=== PATIENT | male | born 1945 | race African-American/Black ===

== ENCOUNTER 2020-07-07 10:34 | Inpatient (IN) | payer OTHER ==
[~2020-07-07] VITALS: Ht 152.4 cm; Wt 148.3 kg
--- NOTE | ~2020-07-07 | HC ---
[facility] [place] [address] CONSULTATION Name: PAYTON ARAGON Room #: 170-9 ADM IN M.R.#: [id number] Admission: 07/07/20 Attend Phys: Trevor Thomas MD Discharge: Date of : 43 Report #: [id number] THIS REPORT FOR: cc: FAM - Family physician unknown FAM - Family physician unknown ~ DATE OF SERVICE: 07/07/2020 REASON FOR CONSULTATION: Possible atrial fibrillation. HISTORY OF PRESENT ILLNESS: The patient is a 75-year-old with history of HIV, prior syphilis, hypertension, hyperlipidemia, diabetes mellitus, recently discharged from [facility], apparently had GI bleeding, had upper and lower endoscopies, does not sound like a source was discovered. Eventually, he was discharged to a shelter facility, where today he started having palpitations and he was noted to be tachycardic with a heart rate in the 170s. Unfortunately, I have no EKGs to verify if there was a true arrhythmia or not. He presented here to the Emergency Room; and his EKG, which I reviewed, showed sinus rhythm with no ischemic changes and a right bundle branch block, but no atrial fibrillation and on telemetry, currently, he is in sinus rhythm as well. He denies any chest pain or chest tightness. He denies any PND or orthopnea. He denies presyncope or syncope. REVIEW OF SYSTEMS: A 12-point review of systems was performed and was negative other than what I mentioned above. PAST SURGICAL HISTORY: As above. SOCIAL HISTORY: He does not smoke. FAMILY HISTORY: Noncontributory. ALLERGIES: None. MEDICATIONS: Have been reviewed, which include acetaminophen, amitriptyline, aspirin, Lipitor, Tessalon Perles, Biktarvy for his HIV, vitamin D, colchicine, Flomax, MiraLax, insulin, hydroxyzine, Levaquin 750 mg every 3 days, losartan 100 mg a day, Toprol 50 mg a day, oxycodone, and pantoprazole. PHYSICAL EXAMINATION: VITAL SIGNS: Temperature is 36.4, his pulse was 151 on admission, is now down to 96, respiration 16, blood pressure 112/66, sats are 98%. GENERAL: He is in no acute distress. He is alert and oriented x 3. HEENT: His sclerae are anicteric. His oropharynx is clear. NECK: Supple, with no thyromegaly or carotid bruits. [facility] [address] [place] [address] CONSULTATION Name: PAYTON ARAGON Room #: 170-9 [facility] IN [facility]#: [id number] Admission: 07/07/20 Attend Phys: Trevor Thomas MD Discharge: Date of : 43 Report #: [id number] HEART: Regular rate and rhythm with no murmurs, rubs, or gallops. LUNGS: Clear to auscultation bilaterally. ABDOMEN: Soft, nontender with no hepatosplenomegaly and no abdominal rebound. His back is with no CVA tenderness. EXTREMITIES: Demonstrate 2+ pulses throughout with no clubbing, cyanosis, or edema. His cranial nerves 2-12 are intact. RADIOLOGIC DATA: His chest x-ray shows no acute process. His CT scan shows bilateral pulmonary emboli. LABORATORY DATA: His white count is 7, hemoglobin is 9.7, and his platelets are 400. His coags demonstrate a D-dimer 6.85. His chemistry shows sodium of 132, potassium 3.9, BUN 13, creatinine 1.7. His troponin is negative. His proBNP is within normal limits at 356. ASSESSMENT: 1. Possible atrial fibrillation. 2. Bilateral pulmonary emboli. PLAN: With regards to his arrhythmia, I have not seen anything definitive at this point. I would go ahead and resume his Toprol, which he was on as an outpatient at 50 mg a day. I would not recommend any antiarrhythmic drugs at this time unless we can document something definitive. With regards to his pulmonary embolus, etiology of this is unclear and we can go ahead and start IV heparin at this time. I would recommend a Pulmonary consult to further workup his pulmonary embolus and determine duration of therapy. If we run into further anemia or bleeding issues, then we may need to consider placement of an IVC filter. We will continue to follow. By: 1549 11 /nt
[~2020-07-07 10:34] MED LIST: LEVOFLOXACIN750 MG PO
[2020-07-07 10:35] VITALS: BP 107/57
[2020-07-07] MEDS ORDERED: ACETAMINOPHEN500 MG PO (10:53)
[2020-07-07] MEDS ORDERED: LIPITOR40 MG PO (10:54)
[2020-07-07] MEDS ORDERED: TESSALON PERLE100 M1 PO (10:54)
[2020-07-07] MEDS ORDERED: AMITRIPTYLINE H50 M3 PO (10:54)
[2020-07-07] MEDS ORDERED: ASA81BEC PO (10:54)
[2020-07-07] MEDS ORDERED: BIKTARVY 50-201 EACH PO (10:55)
[2020-07-07] MEDS ORDERED: VITAMIN D310 MC4 PO (10:55)
[2020-07-07] MEDS ORDERED: HUMALOG100 UNIT/1 SUBQ (10:56)
[2020-07-07] MEDS ORDERED: FLOMAX0.4 MG PO (10:56)
[2020-07-07] MEDS ORDERED: COLCHICINE0.6 M1 PO (10:56)
[2020-07-07] MEDS ORDERED: MIRALAX119 GM PO (10:56)
[2020-07-07] MEDS ORDERED: HYDROXYZINE HCL25 M2 PO (10:57)
[2020-07-07] MEDS ORDERED: ROXICODONE5 MG PO (10:58)
[2020-07-07] MEDS ORDERED: LOSARTAN POTAS100 MG PO (10:58)
[2020-07-07] MEDS ORDERED: TOPROL XL50 MG PO (10:58)
[2020-07-07] MEDS ORDERED: PROTONIX40 M2 PO (10:59)
[2020-07-07] MEDS ORDERED: SENNA PLUS TAB1 EACH PO ×2 (10:59)
[2020-07-07 11:44] LABS: ABSOLUTE NEUTROPHILS 5.2 thou/uL (1.4-8.2); BASOPHILS 0.5 % (0.0-2.0); EOSINOPHILS 2.3 % (0.0-3.0); HEMATOCRIT 29.7 % (42.0-52.0); HEMOGLOBIN 9.7 gm/dL (14.0-18.0); LYMPHOCYTES 16.4 % (24.0-44.0); MCH 28.5 pg (26.0-34.0); MCHC 32.7 g/dL (28.0-37.0); MCV 87.2 fL (80.0-100.0); MONOCYTES 10.1 % (1.0-8.0); PLATELET COUNT 400 thou/uL (150-400); POLYS 70.7 % (36.0-66.0); RDW 16.2 % (10.5-14.5); WBC 7.4 thou/uL (4.0-11.0)
[2020-07-07 11:54] LABS: ANION GAP 6 mmol/L (7-16); BUN 13 mg/dL (7-18); CALCIUM 9.6 mg/dL (8.5-10.1); CHLORIDE 99 mmol/L (98-107); CO2 27 mmol/L (21-32); CREATININE 1.7 mg/dL (0.7-1.3); GLUCOSE 176 mg/dL (74-106); POTASSIUM 3.9 mmol/L (3.5-5.1); SODIUM 132 mmol/L (136-145)
[2020-07-07 12:04] LABS: ALBUMIN 2.5 g/dL (3.4-5.0); SGOT 47 U/L (15-37); SGPT 37 U/L (16-63); TOTAL BILIRUBIN 0.4 mg/dL (0.2-1.0); TOTAL PROTEIN 7.8 g/dL (6.4-8.2); TROPONIN-I <0.06 ng/mL (<0.06)
--- NOTE | 2020-07-07 14:56 | EKG ---
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
[2020-07-07 15:10] LABS: FOLIC ACID 7.1 ng/mL (8.6-58.9)
[2020-07-07 16:42] LABS: APTT 53.5 Seconds (24.5-32.8); INR 1.1; PROTIME 11.9 Seconds (9.3-11.4)
[2020-07-07 19:35] VITALS: BP 113/49
[2020-07-07 19:45] VITALS: BP 113/49
[2020-07-07 20:15] VITALS: BP 122/55
[2020-07-08 00:45] VITALS: BP 106/62
[2020-07-08 03:32] LABS: ABSOLUTE NEUTROPHILS 4.7 thou/uL (1.4-8.2); BASOPHILS 0.9 % (0.0-2.0); EOSINOPHILS 3.1 % (0.0-3.0); HEMATOCRIT 26.1 % (42.0-52.0); HEMOGLOBIN 8.7 gm/dL (14.0-18.0); LYMPHOCYTES 22.4 % (24.0-44.0); MCH 28.9 pg (26.0-34.0); MCHC 33.2 g/dL (28.0-37.0); MCV 87.1 fL (80.0-100.0); PLATELET COUNT 349 thou/uL (150-400); POLYS 62.6 % (36.0-66.0); RDW 16.2 % (10.5-14.5); WBC 7.5 thou/uL (4.0-11.0)
[2020-07-08 03:38] LABS: CALCIUM 8.9 mg/dL (8.5-10.1); CREATININE 1.8 mg/dL (0.7-1.3); MAGNESIUM 1.6 mg/dL (1.8-2.4); POTASSIUM 3.9 mmol/L (3.5-5.1)
[2020-07-08 04:44] VITALS: BP 117/66
--- NOTE | 2020-07-08 07:17 | NUR ---
PATIENTS CARES WERE ASSUMED AT TRANSFER FROM ER. PATIENT A/O X4, DOES NOT WANT TO RETURN TO FACILITY HE CAME FROM. BROTHER TO BRING HIV MEDS TODAY. ORDERS WERE OTAIN TO CONTINUE TO GTT, AND CHECK APTT Q6 HOURS. PATIENT WAS ASSESSED AND MEDS WERE PASSED. AMADA PATELNERS REFUSED DUE TO TWO SOFT STOOLS THIS SHIFT WITHOUT THEM. ROUNDING DONE. BEDIN LOW AND LOCKED POSITION
[2020-07-08 07:50] VITALS: BP 115/75
--- NOTE | 2020-07-08 09:30 | NUR ---
PT IS AXOX4, PLEASANT. HEPARIN GTT AT 10.63ML/HR. APTT DRAWN AT 0830. APTT 76.3 PER PROTOCOL, HEPARIN GTT REDUCED 2.9ML/HR TO 7.72ML/HR.
--- NOTE | 2020-07-08 09:50 | NUR ---
75-year-old who presents to the ED on 07-07-20 from [facility] where he has recently been in skilled care following a hospitalization at [facility] for rectal bleeding. Per the patient at [facility] his EGD and colonoscopy did not reveal a source of bleeding. Patient present to [facility] for sinus tachycardia and found to be in A-fib with RVR. Patient is a patient with Dr. Meng Horton. Patient is listed as A&O x4 and lists his sister Melissa Jarrett as his next of kin at [phone]. Patient expresses not to return to [facility]. Patient has orders for both PT and OT and upon evaluation with MD evaluation will determine discharge plan of care.
[2020-07-08 12:10] VITALS: BP 107/67
--- NOTE | 2020-07-08 13:36 | NUR ---
Met with patient who admits from [facility]. Patient reports he was at [place] and had infected hardware in both knees. Patient had I/D done on knee at [place]. Patient dc to skilled rehab at [facility] 07/01/20. Patient reports he does not want to return. He reports he did not rec much therapy at facility. He does not want to return. He reports he has medicare/medicaid with [place] is $80. patient reviewed skilled list and unfamiliar with facilities. He reports referral to [facility] since across [address]. Patient reports he lives with his brother prior to [facility] [place].
--- NOTE | 2020-07-08 15:15 | 2DMMODE ---
[facility] [place] [address] 2 D/M-MODE ECHOCARDIOGRAM Name: PAYTON ARAGON Room #: 214-P ADM IN M.R.#: [id number] Admission: 07/07/20 Attend Phys: Trevor Thomas MD Discharge: Date of : 43 Report #: [id number] THIS REPORT FOR: cc: FAM - Family physician unknown FAM - Family physician unknown Daniel Kinney MD MERGED WITH [facility] ~ APPROVED REPORT Study performed: 07/08/2020 14:28:57 EXAM: Comprehensive 2D, Doppler, and color-flow Echocardiogram Patient Location: Bedside Room #: 214 Status: routine BSA: 2.45 HR: 89 bpm BP: 107/67 mmHg Rhythm: RBBB Other Information Study Quality: Adequate Technically limited study due to morbid obesity. Indications Question Afib. Hx: DM, HTN, HLP. 2D Dimensions RVDd: 33.65 mm IVSd: 10.51 (7-11mm) LVOT Diam: 21.29 (18-24mm) LVDd: 37.16 mm PWd: 9.53 (7-11mm) Ascending Ao: 37.34 (22-36mm) LVDs: 25.34 (25-40mm) Left Atrium: 30.03 (27-40mm) Aortic Root: 34.22 mm Volumes Left Atrial Volume (Systole) Single Plane 4CH: 31.87 mL Single Plane 2CH: 52.36 mL LA ESV Index: 18.00 mL/m2 Aortic Valve AoV Peak John.: 1.20 m/s [facility] [address] [place] [address] 2 D/M-MODE ECHOCARDIOGRAM Name: PAYTON ARAGON Room #: 214-P [facility] IN .R.#: [id number] Admission: 07/07/20 Attend Phys: Trevor Thomas MD Discharge: Date of : 43 Report #: [id number] AO Peak Gr.: 5.78 mmHg LVOT Max P.81 mmHg LVOT Max V: 1.21 m/s EDDA Vmax: 3.57 cm2 Mitral Valve E/A Ratio: 0.5 MV Decel. Time: 162.69 ms MV E Max John.: 0.49 m/s MV A John.: 0.94 m/s MV PHT: 47.18 ms IVRT: 103.81 ms Pulmonary Valve PV Peak John.: 0.93 m/s PV Peak Gr.: 3.48 mmHg Tricuspid Valve TR Peak John.: 1.74 m/s RAP Estimate: 5.00 mmHg TR Peak Gr.: 12.05 mmHg PA Pressure: 17.00 mmHg Left Ventricle The left ventricle is normal size. There is normal LV segmental wall motion. There is normal left ventricular wall thickness. Left ventricular systolic function is normal. LVEF is 55%. Mild diastolic dysfunction is present (impaired relaxation pattern). Right Ventricle The right ventricle is normal size. The right ventricular systolic function is normal. Atria The left atrium size is normal. The right atrium size is normal. Aortic Valve The aortic valve is normal in structure; mildly calcified. No aortic regurgitation is present. There is no aortic valvular stenosis. Mitral Valve The mitral valve is normal in structure. Trace mitral regurgitation. Tricuspid Valve The tricuspid valve is normal in structure. Trace tricuspid regurgitation. Estimated PAP is 17mmHg. [facility] [address] [place] [address] 2 D/M-MODE ECHOCARDIOGRAM Name: ESTEPHANIA ARAGONR Room #: 214-P ADM IN M.R.#: [id number] Admission: 07/07/20 Attend Phys: Trevor Thomas MD Discharge: Date of : 43 Report #: [id number] Pulmonic Valve The pulmonary valve is normal in structure. Trace pulmonic regurgitation. Great Vessels The aortic root is normal in size. The ascending aorta is normal in size. IVC is normal in size and collapses >50% with inspiration. Pericardium There is no pericardial effusion. <Conclusion> Normal left ventricular size/wall thickness Ejection fraction 55% Grade 1 diastolic dysfunction Normal right ventricular size/function Normal atrial size Color-flow upper study was performed of the aortic/mitral/tricuspid/pulmonary valve Mild aortic valve sclerosis without stenosis Normal aortic valve structure and function Trace tricuspid valve insufficiency Pulmonary systolic pressure estimated at 17 mmHg Normal aortic root size No pericardial effusion <ELECTRONICALLY SIGNED> By: Daniel Kinney MD, FACC 07/08/201514 14 14 Daniel Kinney MD, FAC /INF
[2020-07-08 16:45] VITALS: BP 103/62
[2020-07-08 20:22] VITALS: BP 143/68
[2020-07-09] VITALS: BP 148/78
[2020-07-09 03:30] LABS: HEMATOCRIT 27.2 % (42.0-52.0); HEMOGLOBIN 8.8 gm/dL (14.0-18.0); MCH 28.3 pg (26.0-34.0); MCHC 32.4 g/dL (28.0-37.0); MCV 87.4 fL (80.0-100.0); RBC 3.11 mil/uL (4.50-6.00); RDW 16.4 % (10.5-14.5); WBC 7.1 thou/uL (4.0-11.0)
[2020-07-09 03:34] LABS: CREATININE 2.1 mg/dL (0.7-1.3); POTASSIUM 3.8 mmol/L (3.5-5.1)
[2020-07-09 04:30] VITALS: BP 144/69
--- NOTE | 2020-07-09 06:46 | NUR ---
PATIENTS CARES WERE ASSUMED AT SHIFT CHANGE. PATIENT WAS ASSESSED AND MEDS WERE PASSED PATIENT DID SLEEP FOR APPROX 9 HOURS THIS SHIFT. IT WAS AN UNEVENTFUL NIGHT, ROUNDS WERE DONE. THE BED IS IN A LOW AND LOCKED POSITION. THE BED ALARM IS ON.
[2020-07-09 09:13] VITALS: BP 141/70
[2020-07-09 11:15] VITALS: BP 107/66
--- NOTE | 2020-07-09 15:29 | NUR ---
FAXED REFERRAL TO [facility] RECEIVED CONFIRMATION AND LEFT MSG WITH WHITNEY IN ADM.
[2020-07-09 16:00] VITALS: BP 116/49
--- NOTE | 2020-07-09 16:44 | NUR ---
DC planning discussed with the care team and pt at bedside. 5N evaluated and recommened SNF level of rehab due to need for ortho f/u and uncertain timeframe for bilat knee immobilizers. Pt notes he lives with his brother who is also ill and he has limited support at home. He is motivated to get stronger and return to indep living. He is interested in SNF stay at [facility] vs going back to [facility]. They have accepted him and will have a bed tomorrow. Pt's ortho f/u appt at [facility] has been rescheduled for 07/15 at 9:45 and his GI appt rescheduled for 08/13 @ 10:30. The pt is aware and agreeable. Appts info provided to [facility]. He also has an ID follow up at [facility] for 07/16 @ 9:30. The pt will need HH and HCBS referral at ne from SNF for support at home. He has a FWW and his nephew will bring his belongings from [place] to [facility]. Nursing advise of possible dc 1-2 days. Covid test requested for tonight.
--- NOTE | 2020-07-09 17:02 | NUR ---
PT IS AXOX4, COOPERATIVE. PT VOICES CONCERNS ABOUT WELLBEING, AND STATUS OF HIS LUNGS AND KNEES. DR PUGH CONSULTED. PT/OT CONSULTED. PT REMAINS ON HEPARIN GTT. CRITICAL LAB APTT 108.8 AT 1610. FOLLOWED HEPARING PROTOCOLS DIRECTED. POC TO CONTINUE HEPARIN PROTOCOL, MONITOR BP/HR/BLOOD SUGAR. CASE MGMT CONSULTED. PLAN FOR POSSIBLE DISCHARGE TO REHAB/SNF [facility] ON Tuesday07/11/20. HIGH FALL RISK. FALL PRECAUTIONS IN PLACE. NO CONCERNS AT THIS TIME.
[2020-07-09 19:54] VITALS: BP 108/61
--- NOTE | 2020-07-10 04:21 | NUR ---
SLEPT MOST OF SHIFT. PATIENT REPOSITIONS SELF NEEDED. BILATERAL LEGS ELEVATED ON PILLOWS. MAINTAIN HEPARIN GTT PER PROTOCOL. WORKING ON GOALS AND PLAN OF CARE FOR NOC. NO PRESENT COMPLAINTS OF PAIN AT THIS TIME. PROGRESSING SLOWLY ON PLANS FOR REHAB. CONTINUE TO ASSES CLOSELY.
[2020-07-10 04:55] VITALS: BP 129/65
[2020-07-10 05:58] LABS: HEMATOCRIT 25.4 % (42.0-52.0); HEMOGLOBIN 8.4 gm/dL (14.0-18.0); MCH 28.9 pg (26.0-34.0); MCV 87.6 fL (80.0-100.0); RBC 2.9 mil/uL (4.50-6.00); RDW 16.7 % (10.5-14.5); WBC 6.6 thou/uL (4.0-11.0)
[2020-07-10 06:15] LABS: CALCIUM 9.1 mg/dL (8.5-10.1); CREATININE 1.9 mg/dL (0.7-1.3); POTASSIUM 3.7 mmol/L (3.5-5.1)
[2020-07-10 07:37] VITALS: BP 116/55
[2020-07-10 11:39] VITALS: BP 126/51
--- NOTE | 2020-07-10 13:49 | NUR ---
PT IS AXOX4, PLEASANT. VSS, AFEBRILE. DR PUGH CONSULTED. PT/OT CONSULTED. PT BILAT KNEE I&D COMPLETED AT [facility], MEDICAL RECORD ON FILE. CASE MGMT CONSULTED. PT TO DISCHARGE TO REHAB ON Tuesday07/11/20. HEPARIN GTT DISCONTINUED, PT ON ORAL RX. PT HAD RUN OF ELEVATED HR AT 150, EKG CALLED. EKG SHOWED PT HAD SINUS TACH WITH BUNDLE BRANCH BLOCK. PT NOW IN SR. POC IS TO CONTINUE TO MONITOR H+H, PAIN MGMT, HAVE PT WORK WITH PT/OT. FALL PRECAUTIONS IN PLACE. NO CONCERN AT THIS TIME.
[2020-07-10 15:18] VITALS: BP 112/70
--- NOTE | 2020-07-10 17:00 | NUR ---
Covid test neg and dc inventory control planner to fax to admissions at [facility]. All parties anticipating dc tomorrow to SNF there. Eunice BR updated and will not be expecting the pt to return. Pt transitioned off heprin gtt today. Dc to SNF tomorrow.
--- NOTE | 2020-07-10 17:10 | NUR ---
FAXED NEGATIVE COVID RESULTS (07/10/20) TO [facility].
--- NOTE | 2020-07-10 17:15 | EKG ---
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
[2020-07-10 20:17] VITALS: BP 111/58
[2020-07-11 03:46] VITALS: BP 120/66
--- NOTE | 2020-07-11 04:49 | NUR ---
SLEPT MOST OF SHIFT. NO COMPLAINTS OF PAIN THIS SHIFT. INCONTINENT OF MODERATE LOOSE STOOL. WORKING ON GOAL AND PLAN OF CARE FOR NOC. PROGRESSING TOWARDS DISCHARGE GOALS TO REHAB IN AM. CONTINUE TO ASSES CLOSELY.
[2020-07-11 05:55] VITALS: BP 110/56
--- NOTE | 2020-07-11 07:47 | NUR ---
[address] 140'S. AM METOPROLOL GIVEN AND PAIN MEDICATION. NOTIFIED FREDDIE BOMB SQUAD COMMANDER AND LOPRESSOR IVP GIVEN. 0630 HR NOW 130'S. 0730 [address] SR RATE 80'S NOW. RESTING QUIETLY WITH EYES CLOSED.
[2020-07-11 09:12] VITALS: BP 127/63
[2020-07-11 10:22] LABS: ABSOLUTE NEUTROPHILS 3.2 thou/uL (1.4-8.2); BASOPHILS 0.5 % (0.0-2.0); EOSINOPHILS 4.3 % (0.0-3.0); HEMATOCRIT 26.3 % (42.0-52.0); HEMOGLOBIN 8.9 gm/dL (14.0-18.0); LYMPHOCYTES 26.8 % (24.0-44.0); MCH 29.3 pg (26.0-34.0); MCHC 33.7 g/dL (28.0-37.0); MCV 87.2 fL (80.0-100.0); MONOCYTES 8.8 % (1.0-8.0); PLATELET COUNT 300 thou/uL (150-400); POLYS 59.6 % (36.0-66.0); RBC 3.02 mil/uL (4.50-6.00); RDW 16.4 % (10.5-14.5); WBC 5.4 thou/uL (4.0-11.0)
[2020-07-11 10:37] LABS: CALCIUM 9.6 mg/dL (8.5-10.1); CREATININE 1.8 mg/dL (0.7-1.3); POTASSIUM 4.1 mmol/L (3.5-5.1)
[2020-07-11 12:03] VITALS: BP 115/60
[2020-07-11] MEDS ORDERED: ELIQUIS5 MG PO (12:26)
[2020-07-11] MEDS ORDERED: HYDROCODON-ACE1 EAC7 PO (12:27)
--- NOTE | 2020-07-11 14:50 | NUR ---
Dc senior materials planner working on stretcher transport for this afternoon as pt is not able to tolerate sitting in w/c for ride to the facility. Chart copy in progress. [facility] can accept this after for continued rehab. Dc senior materials planner to fax final snf orders. Nursing to call report and pt to let his nephew know to bring his things to the new facility. He has his cell phone at bedside. Pt to be skilled for continued therapy. All parties aware of upcoming appts at [facility] next week.
--- NOTE | 2020-07-11 16:41 | NUR ---
PT DISCHARGING TODAY TO [facility] FAXED DC ORDERS/SUMMARY TO FACILITY SPOKE WITH ZOË IN ADM SHE RECEIVED ORDERS. TRANSPORT ARRANGED WITH [employer] TRIP #[id number] STRET[facility]ER [facility]AN THEY WILL PICK PT UP BETWEEN [phone] TODAY. UNIT NOTIFIED
--- NOTE | 2020-07-11 17:18 | NUR ---
ASSUMED CARE SHIFT CHANGE. ASSESSMENTS CHARTED.MEDS GIVEN. VSS. PT WORKED WITH PHYS THERAPY AND OT TOLERATING WELL. INCISIONS WELL APPROX, DRY INTACT [facility] INTACT. PLAN FOR PT DC [facility]. IV REMOVED. TELE REMOVED. PT LEFT UNIT VIA [facility]. HOME MEDS LEFT IN [facility], WILL CONTACT FACILITY TO NOTIFY OF MEDS LEFT.
== END 2020-07-11 17:00 | DRG 175 ==
LOC: ER 10:34 → 2N 13:47 → EROBS 13:47 → 2N 20:25
PROVIDERS: Emergency Medicine; Nurse Practitioner; ADMIT Hospitalist; ATTEND Hospitalist
DX: I26.99 Other pulmonary embolism without acute cor pulmonale (principal); E43 Unspecified severe protein-calorie malnutrition; N17.0 Acute kidney failure with tubular necrosis; I48.20 Chronic atrial fibrillation, unspecified; E44.0 Moderate protein-calorie malnutrition; I47.1 Supraventricular tachycardia; M00.862 Arthritis due to other bacteria, left knee; Z68.44 Body mass index [BMI] 60.0-69.9, adult; M00.861 Arthritis due to other bacteria, right knee; E11.22 Type 2 diabetes mellitus with diabetic chronic kidney disease; Z21 Asymptomatic human immunodeficiency virus [HIV] infection status; Z20.822 Contact with and (suspected) exposure to COVID-19; E78.5 Hyperlipidemia, unspecified; I12.9 Hypertensive chronic kidney disease with stage 1 through stage 4 chronic kidney disease, or unspecified chronic kidney disease; N18.9 Chronic kidney disease, unspecified; R94.6 Abnormal results of thyroid function studies; E66.9 Obesity, unspecified; R53.81 Other malaise; A53.9 Syphilis, unspecified; M11.262 Other chondrocalcinosis, left knee; M11.261 Other chondrocalcinosis, right knee; Z79.899 Other long term (current) drug therapy
CPT/HCPCS: 10081